=== PATIENT | female | born 1990 | race Caucasian/White ===

== ENCOUNTER 2021-09-16 14:26 | Emergency (ER) | payer MEDICAID ==
[~2021-09-16] VITALS: Ht 172.7 cm; Wt 64.5 kg
--- NOTE | 2021-09-16 15:34 | EKG ---
[address] [address] Test Date: 2021-09-16 Test Time: 15:19:06 Pat Name: ROMAN PARIS Department: Room: Gender: F Dining Room Coordinator: ANALISA : 1990 Requested By: VIKTOR WALDEN Order Number: [id number] Reading MD: Tye Serrano MD Measurements Intervals [place] Rate: 100 P: 62 NV: 142 QRS: 73 QRSD: 90 T: 36 QT: 350 QTc: 455 Interpretive Statements SINUS RHYTHM Electronically Signed On 09-20-2021 11:26:23 CDT by Tye Serrano MD
--- NOTE | 2021-09-16 16:47 | PHYS DOC ---
Past History Additional Past Medical Histor: drug abuse Past Surgical History: No Surgical History Alcohol Use: None General Adult EDM: Chief Complaint: DRUG ABUSE HPI: HPI: Patient is a 31-year-old female who presents with anxiety. Patient states "I used too much meth earlier and got nervous". "I felt like my heart was going fast". Patient denies shortness of breath, chest pain. Patient reports that symptoms have resolved. Denies medical history. Review of Systems: Review of Systems: ROS At least 10 ROS systems have been reviewed and are negative except as documented in the HPI. General: Negative except as outlined in HPI above. Skin: Negative except as outlined in HPI above. HEENT: Negative except as outlined in HPI above. Neck: Negative except as outlined in HPI above. Respiratory: Negative except as outlined in HPI above.. Cardiovascular: Negative except as outlined in HPI above. Abdomen: Negative except as outlined in HPI above. : Negative except as outlined in HPI above. Back/MSK: Negative except as outlined in HPI above. Neuro: Negative except as outlined in HPI above. Psych: Negative except as outlined in HPI above. Allergies: Allergies: Allergies Coded Allergies Type Severity Reaction Last Updated Verified No Known Drug Allergies 09/16/21 No Physical Exam: PE: Constitutional: Well developed, well nourished, no acute distress, non-toxic appearance. [] HENT: Normocephalic, atraumatic, bilateral external ears normal, oropharynx moist, no oral exudates, nose normal. [] Eyes: PERRLA, EOMI, conjunctiva normal, no discharge. [] Neck: Normal range of motion, no tenderness, supple, no stridor. [] Cardiovascular:Heart rate regular rhythm, no murmur [] Lungs & Thorax: Bilateral breath sounds clear to auscultation [] Abdomen: Bowel sounds normal, soft, no tenderness, no masses, no pulsatile masses. [] Skin: Warm, dry, no erythema, no rash. [] Back: No tenderness, no CVA tenderness. [] Extremities: No tenderness, no cyanosis, no clubbing, ROM intact, no edema. [] Neurologic: Alert and oriented X 3, normal motor function, normal sensory function, no focal deficits noted. [] Psychologic: Affect normal, judgement normal, mood normal. [] Current Patient Data: Vital Signs: Vital Signs Date Time Temp Pulse Resp B/P (MAP) Pulse Ox O2 Delivery O2 Flow Rate FiO2 09/16/21 15:44 95 16 125/90 (102) 100 09/16/21 15:02 97.9 Room Air EKG: EKG: []Sinus Rhythm, HR 100 BPM. No stemi. Read by . Radiology/Procedures: Radiology/Procedures: [] Heart Score: C/O Chest Pain: No Risk Factors: Risk Factors: DM, Current or recent (<one month) smoker, HTN, HLP, family history of CAD, obesity. Risk Scores: Score 0 - 3: 2.5% MACE over next 6 weeks - Discharge Home Score 4 - 6: 20.3% MACE over next 6 weeks - Admit for Clinical Observation Score 7 - 10: 72.7% MACE over next 6 weeks - Early Invasive Strategies Course & Med Decision Making: Course & Med Decision Making Pertinent Labs and Imaging studies reviewed. (See chart for details) [] 31-year-old female presents with anxiety due to meth use. Patient reported her heart was beating fast and she got anxious. Patient's denying chest pain, shortness of breath. Patient is hemodynamically stable. EKG shows sinus rhythm. Heart rate 100 bpm. No STEMI. Read by Dr. Lopez. Explained to patient that meth use can cause heart palpitations and discussed negative effects that has on her body. Patient was denying all symptoms upon physical exam. Advised patient to follow-up with PCP. Discussed return precautions. Dragon Disclaimer: Dragon Disclaimer: This electronic medical record was generated, in whole or in part, using a voice recognition dictation system. Departure Departure: Impression: Primary Impression: Anxiety Additional Impressions: Racing heart beat Methamphetamine abuse Disposition: HOME / SELF CARE / HOMELESS Condition: STABLE Referrals: FELIX BOWMAN MD (PCP) Patient Instructions: Anxiety and Panic Attacks, [id number] Additional Instructions: You were seen in the emergency room for anxiety, due to methamphetamine use. Return to the emergency room if you have worsening symptoms or concerns. EMERGENCY DEPARTMENT GENERAL DISCHARGE INSTRUCTIONS Thank you for coming to [facility] (ED) today and trusting us with you care. We trust that you had a positivie experience in our Emergency Department. If you wish to speak to the department management, you may call the director at [phone]. YOUR FOLLOW UP INSTRUCTIONS ARE FOLLOWS: 1. Do you have a private Doctor? If you do not have a private doctor, please ask for a resource list of physicians or clinics that may be able to assist you with follow up care. 2. The Emergency Physician has interpreted your x-rays. The X-Ray specialist will also review them. If there is a change in the findings, you will be notified in 48 hours when at all possible. 3. A lab test or culture has been done, your results will be reviewed and you will be notified if you need a change in treatment. ADDITIONAL INSTRUCTIONS AND INFORMATION: 1. Your care today has been supervised by a physician who is specially trained in emergency care. Many problems require more than one evaluation for a complete diagnosis and treatment. We recommend that you schedule your follow up appointment as recommended to ensure complete treatment of you illness or injury. If you are unable to obtain follow up care and continue to have a problem, or if your condition worsens, we recommend that you return to the ED. 2. We are not able to safely determine your condition over the phone nor are we able to give sound medical advice over the phone. For these safety reasons, if you call for medical advice we will ask you to come to the ED for further evaluation. 3. If you have any questions regarding these discharge instructions please call the ED at [phone]. SAFETY INFORMATION: In the interest of safety, wellness, and injury prevention; we encourage you to wear your sealbelt, if you smoke; quite smoking, and we encourage family to use a protective helmet for bicycling and other sporting events that present an increased risk for head injury. IF YOUR SYMPTOMS WORSEN OR NEW SYMPTOMS DEVELOP, OR YOU HAVE CONCERNS ABOUT YOUR CONDITION; OR IF YOUR CONDITION WORSENS WHILE YOU ARE WAITING FOR YOUR FOLLOW UP APPOINTMENT; EITHER CONTACT YOUR PRIMARY CARE DOCTOR, THE PHYSICIAN WHOSE NAME AND NUMBER YOU WERE GIVEN, OR RETURN TO THE ED IMMEDIATELY. EAGLE CUEVAS APRN Sep 16, 2021 16:47
[2021-09-16 16:54] VITALS: BP 123/87
== END 2021-09-16 17:08 | disposition home or self-care (01) ==
LOC: ER 14:26
DX: F41.9 Anxiety disorder, unspecified (principal); R00.0 Tachycardia, unspecified; F15.10 Other stimulant abuse, uncomplicated
CPT/HCPCS: 93005; 99283-25